=== PATIENT | male | born 1960 | race Caucasian/White ===

== ENCOUNTER 2017-10-22 19:18 | Emergency (ER) | payer BC ==
[~2017-10-22] VITALS: Ht 172.7 cm; Wt 104.3 kg
--- NOTE | 2017-10-22 19:23 | ER Report ---
History and Physical Time Seen By MD: 19:22 HPI/ROS CHIEF COMPLAINT: Shortness of breath, chest pain, right shoulder pain HISTORY OF PRESENT ILLNESS: 56-year-old male visiting from [facility] and [facility]. Patient began to feel bad this afternoon. He was taking out the snow pants when he states he had a syncopal episode and collapsed on the porch. He denies injury. Patient states he has history of altitude sickness. He states several months ago when he was in the [facility]. He had difficulty breathing with exertion. Denies no chest pain with exertion. He denies chest pain today. On arrival he has audible wheezing. Complaining of chest tightness and right shoulder pain. Patient admits to methamphetamine use today. REVIEW OF SYSTEMS: Respiratory: As above Cardiovascular: As above Gastrointestinal: No vomiting, no abdominal pain. Musculoskeletal: No back pain. Allergies: Coded Allergies: No Known Drug Allergies (Unverified , 10/22/17) Reviewed Nurses Notes: Yes Old Medical Records Reviewed: Yes Constitutional Vital Sign - Last 24 Hours 10/22/17 10/22/17 10/22/17 10/22/17 19:18 19:20 19:22 19:30 Pulse ??? 93 Resp 20 B/P (MAP) 149/92 (111) 149/92 122/77 (92) Pulse Ox 99 O2 Delivery Room Air 10/22/17 10/22/17 10/22/17 10/22/17 19:33 19:41 19:41 19:42 Pulse 98 Resp 19 20 Pulse Ox 91 98 O2 Delivery Room Air O2 Flow Rate 2.0 10/22/17 10/22/17 10/22/17 10/22/17 19:45 19:48 19:55 20:00 Pulse 87 Resp 10 B/P (MAP) 103/82 (89) 153/100 (117) 151/85 (107) Pulse Ox 98 10/22/17 10/22/17 10/22/17 10/22/17 20:03 20:15 20:30 20:35 Pulse 89 87 88 Resp 18 21 9 B/P (MAP) 155/99 (117) 139/93 (108) 134/82 (99) Pulse Ox 98 98 97 1/27/18 1/27/18 1/27/18 1/27/18 20:45 20:50 21:05 21:15 Pulse 95 98 Resp 15 15 B/P (MAP) 120/97 (105) 118/89 (99) Pulse Ox 92 90 10/22/17 10/22/17 10/22/17 10/22/17 21:20 21:30 21:35 21:45 Pulse 101 96 Resp 10 19 B/P (MAP) 109/81 (90) 116/73 (87) Pulse Ox 91 95 10/22/17 21:50 Pulse 99 Resp 14 Intake and Output 10/22/17 10/22/17 10/23/17 15:00 23:00 07:00 Intake Total 1000 ml Balance 1000 ml Physical Exam General Appearance: The patient is alert, has no immediate need for airway protection and no current signs of toxicity. Moderate distress, vital signs stable, afebrile, pulse ox normal HEENT: Pupils equal and round no injection. Oropharynx without redness or exudate Respiratory: Chest is non tender, lungs are clear to auscultation. No chest wall tenderness Cardiac: regular rate and rhythm, no murmur Gastrointestinal: Abdomen is soft and non tender, no masses, bowel sounds normal. Musculoskeletal: Neck: Neck is supple and non tender. Extremities have full range of motion and are non tender. No edema, no calf tenderness, there is pain in the right shoulder on passive movement Skin: No rashes or lesions. DIFFERENTIAL DIAGNOSIS: After history and physical exam differential diagnosis was considered for chest pain including but not limited to myocardial ischemia, pericarditis pulmonary embolus, chest wall pain, pleural inflammation and pulmonary infectious causes. Medical Decision Making Data Points Result Diagram: 10/22/17193110/22/171931 Laboratory Hematology Test 10/22/17 19:32 Red Blood Count 5.19 M/uL (4.00-5.60) Mean Corpuscular Volume 83.5 fL (80.0-96.0) Mean Corpuscular Hemoglobin 28.8 pg (26.0-33.0) Mean Corpuscular Hemoglobin Concent 34.5 g/dL (32.0-36.0) Red Cell Distribution Width 13.9 % (11.5-14.5) Mean Platelet Volume 7.2 fL (7.2-11.1) Neutrophils (%) (Auto) 76.9 % (39.4-72.5) Lymphocytes (%) (Auto) 15.2 % (17.6-49.6) Monocytes (%) (Auto) 6.3 % (4.1-12.4) Eosinophils (%) (Auto) 0.9 % (0.4-6.7) Basophils (%) (Auto) 0.7 % (0.3-1.4) Nucleated RBC Relative Count (auto) 0.0 /100WBC Neutrophils # (Auto) 7.8 K/uL (2.0-7.4) Lymphocytes # (Auto) 1.5 K/uL (1.3-3.6) Monocytes # (Auto) 0.6 K/uL (0.3-1.0) Eosinophils # (Auto) 0.1 K/uL (0.0-0.5) Basophils # (Auto) 0.1 K/uL (0.0-0.1) Nucleated RBC Absolute Count (auto) 0.00 K/uL Prothrombin Time 13.0 seconds (12.0-14.4) Prothromb Time International Ratio 0.98 Activated Partial Thromboplast Time 27 seconds (23-35) D-Dimer Quantitative (PE/DVT) < 0.27 ug/ml (0-0.50) Sodium Level 138 mmol/L (137-145) Potassium Level 3.9 mmol/L (3.5-5.0) Chloride Level 103 mmol/L (98-107) Carbon Dioxide Level 23 mmol/L (22-30) Blood Urea Nitrogen 16 mg/dl (9-21) Creatinine 1.20 mg/dl (0.66-1.25) Glomerular Filtration Rate Calc > 60.0 Random Glucose 85 mg/dl (75-110) Lactate 2.1 mmol/L (0.7-2.1) Calcium Level 9.1 mg/dl (8.4-10.2) Total Bilirubin 0.9 mg/dl (0.2-1.3) Aspartate Amino Transf (AST/SGOT) 48 U/L (0-35) Alanine Aminotransferase (ALT/SGPT) 81 U/L (0-56) Alkaline Phosphatase 105 U/L (0-126) Troponin I 0.115 ng/ml B-Type Natriuretic Peptide 255 pg/ml (0-100) Total Protein 7.0 gm/dl (6.3-8.2) Albumin 3.9 g/dl (3.5-5.0) Chemistry Test 10/22/17 19:32 White Blood Count 10.2 k/uL (4.5-11.0) Red Blood Count 5.19 M/uL (4.00-5.60) Hemoglobin 15.0 g/dL (14.0-18.0) Hematocrit 43.4 % (42.0-52.0) Mean Corpuscular Volume 83.5 fL (80.0-96.0) Mean Corpuscular Hemoglobin 28.8 pg (26.0-33.0) Mean Corpuscular Hemoglobin Concent 34.5 g/dL (32.0-36.0) Red Cell Distribution Width 13.9 % (11.5-14.5) Platelet Count 267 K/uL (150-450) Mean Platelet Volume 7.2 fL (7.2-11.1) Neutrophils (%) (Auto) 76.9 % (39.4-72.5) Lymphocytes (%) (Auto) 15.2 % (17.6-49.6) Monocytes (%) (Auto) 6.3 % (4.1-12.4) Eosinophils (%) (Auto) 0.9 % (0.4-6.7) Basophils (%) (Auto) 0.7 % (0.3-1.4) Nucleated RBC Relative Count (auto) 0.0 /100WBC Neutrophils # (Auto) 7.8 K/uL (2.0-7.4) Lymphocytes # (Auto) 1.5 K/uL (1.3-3.6) Monocytes # (Auto) 0.6 K/uL (0.3-1.0) Eosinophils # (Auto) 0.1 K/uL (0.0-0.5) Basophils # (Auto) 0.1 K/uL (0.0-0.1) Nucleated RBC Absolute Count (auto) 0.00 K/uL Prothrombin Time 13.0 seconds (12.0-14.4) Prothromb Time International Ratio 0.98 Activated Partial Thromboplast Time 27 seconds (23-35) D-Dimer Quantitative (PE/DVT) < 0.27 ug/ml (0-0.50) Glomerular Filtration Rate Calc > 60.0 Lactate 2.1 mmol/L (0.7-2.1) Calcium Level 9.1 mg/dl (8.4-10.2) Total Bilirubin 0.9 mg/dl (0.2-1.3) Aspartate Amino Transf (AST/SGOT) 48 U/L (0-35) Alanine Aminotransferase (ALT/SGPT) 81 U/L (0-56) Alkaline Phosphatase 105 U/L (0-126) Troponin I 0.115 ng/ml B-Type Natriuretic Peptide 255 pg/ml (0-100) Total Protein 7.0 gm/dl (6.3-8.2) Albumin 3.9 g/dl (3.5-5.0) Coagulation Test 10/22/17 19:32 Prothrombin Time 13.0 seconds Prothromb Time International Ratio 0.98 Activated Partial Thromboplast Time 27 seconds D-Dimer Quantitative (PE/DVT) < 0.27 ug/ml EKG/Imaging EKG Interpretation 12 lead EK Rhythm: normal sinus rhythm [place]: Rightward axis QRS: normal ST segments: normal, nonspecific biphasic T waves diffusely, no old EKGs for comparison Imaging X-ray:Single view portable chest x-ray was obtained. I viewed the images myself on the PACS system. My interpretation of the images is: No infiltrate, no effusion, normal mediastinum . The radiologist interpretation had no clinically significant variation from this interpretation. ED Course/Re-evaluation Clinical Indication for ER IV: Hydration, IV Access ED Course Patient was admitted to an examination room. H&P was done. The differential diagnoses was considered. On clinical examination. Patient's in significant distress, but he has normal vital signs. He is complaining of chest pain. His initial EKG shows no gross evidence of ischemia, except diffuse T-wave flattening and some biphasic T waves. Patient's treated with IV fentanyl, Toradol, Zofran and aspirin 324 mg. Patient receives a DuoNeb for audible wheezing. He has wheezing on auscultation of the chest. Patient's portal chest x-ray shows no abnormalities. There is no mediastinal widening. Patient' s diagnostic studies return. Elevated troponin 0.115, suggestive of acute coronary syndrome. Patient admitted to methamphetamine abuse. He's also altitude from his home state of [place]. Patient likely has cardiac ischemia induced by methamphetamine use. Patient's treated with Nitropaste and Dilaudid since he has no improvement with the Toradol and fentanyl. Cardiology's consult at [facility] who advise Lovenox and Lipitor 80 mg by mouth. They advise transfer by ambulance to their facility for further monitoring and treatment. Patient on reevaluation is much improved after Dilaudid and Nitropaste. His chest pain is significantly reduced. He is resting comfortably. 10/22/2017 8:12:22 pm case discussed with traffic police officer Dr Lake and hospitalist Dr Hu at [facility] Decision to Disposition Date: Oct 22, 2017 Decision to Disposition Time: 20:04 Critical Care Time I spent a total of 60 minutes of critical care time in obtaining history, performing a physical exam, bedside monitoring of interventions, collecting and interpreting tests and discussion with consultants but not including time spent performing procedures. Depart Departure Latest Vital Signs Vital Signs Date Time Temp Pulse Resp B/P (MAP) Pulse Ox O2 Delivery O2 Flow Rate FiO2 10/22/17 21:50 99 14 10/22/17 21:45 116/73 (87) 10/22/17 21:35 95 10/22/17 19:42 2.0 10/22/17 19:41 Room Air Impression: Primary Impression: Chest pain Additional Impressions: Methamphetamine abuse Elevated troponin Condition: Improved Disposition: XFER TO ACUTE [facility]ARE [facility] Problem Qualifiers Primary Impression: Chest pain Chest pain type: chest pain due to myocardial ischemia Ischemic chest pain type: unspecified angina pectoris type Qualified Codes: I20.9 - Angina pectoris, unspecified JANETH LARA DO Oct 22, 2017 19:23
[2017-10-22] MEDS ORDERED: NS(*) 0.9% 1000 ML BAG 1,000 ML IV ONE (19:27)
[2017-10-22] MEDS ORDERED: ALBUTEROL/IPRATROPIUM 3 ML NEB NEB ONE (19:30)
[2017-10-22] MEDS ORDERED: ASPIRIN 81 MG CHEW PO ONE (19:30)
[2017-10-22] MEDS ORDERED: fentaNYL CITR 100 MCG/2 ML AMP IVP ONE (19:30)
[2017-10-22] MEDS ORDERED: KETOROLAC 30 MG/ML VIAL IVP ONE (19:30)
[2017-10-22] MEDS ORDERED: ONDANSETRON 4 MG/2 ML VIAL IVP ONE (19:30)
[2017-10-22 19:47] LABS: PLATELET COUNT, AUTOMATED 267 K/uL (150-450)
[2017-10-22] MEDS ORDERED: HYDROmorphone(ER ONLY) 1 MG/ML IVP ONE (20:00)
[2017-10-22] MEDS ORDERED: NITROGLYCERIN OINT 1 GM PKT TP ONE (20:00)
--- NOTE | 2017-10-22 20:06 | RADIOLOGY IMAGING REPORT ---
FACILITY: [facility] PATIENT NAME: Nessa Casanova : 1960 MR: [id number] V: [id number] EXAM DATE: ORDERING PHYSICIAN: JANETH LARA TECHNOLOGIST: Location: [facility] Patient: Nessa Casanova : 1960 Visit/Account:[id number] Date of Sevice: 10/22/2017 Examination: CHEST SINGLE AP Comparison: None. History: Chest Pain Findings: No consolidation, nodule, or peribronchial inflammation. No pneumothorax, edema, or effusio n. Cardiac and hilar contour size is within normal limits. Osseous structures are intact. IMPRESSION: No evidence of acute cardiopulmonary disease. Report Dictated By: Omer Mcknight MD at 10/22/2017 8:01 PM Report E-Signed By: Omer Mcknight MD at 10/22/2017 8:02 PM [id number]
[2017-10-22] MEDS ORDERED: ATORVASTATIN 40 MG TAB PO ONE (20:15)
[2017-10-22] MEDS ORDERED: ENOXAPARIN 100 MG/ML SYR SC ONE (20:15)
[2017-10-22 20:27] LABS: INR 0.98
--- NOTE | 2017-10-22 21:13 | EKG ---
FACILITY: [facility] PATIENT NAME: VINNIE FAYE : [id number] MR: [id number] V: [id number] EXAM DATE: ORDERING PHYSICIAN: JANETH LARA TECHNOLOGIST: SAUD Test Reason : CHEST PAIN Blood Pressure : / mmHG Vent. Rate : 097 BPM Atrial Rate : 097 BPM P-R Int : 152 ms QRS Dur : 084 ms QT Int : 372 ms P-R-T Axes : 071 098 065 degrees QTc Int : 472 ms Normal sinus rhythm Rightward axis Prolonged QT Abnormal ECG No previous ECGs available Confirmed by SHILA NEGRO ([id number]) on 10/23/2017 8:57:26 AM Referred By: Confirmed By:SHILA NEGRO
[2017-10-22 21:45] VITALS: BP 116/73
== END 2017-10-22 21:45 | disposition short-term general hospital (02) ==
LOC: ER 19:32
DX: I20.9 Angina pectoris, unspecified (principal); R07.89 Other chest pain; F15.90 Other stimulant use, unspecified, uncomplicated; R79.89 Other specified abnormal findings of blood chemistry
CPT/HCPCS: 71045; 83605; 83880; 84484; 85025; 85379; 85610; 85730; 93005; 94640; 96361; 96372; 96374; 96375; 99291; J1170; J1650; J1885; J2405; J3010; J7030; J7620; 82040; 82247; 82310; 82374; 82435; 82565; 82947; 84075; 84132; 84155; 84295; 84450; 84460; 84520; 99285

== ENCOUNTER → 2017-10-22 | Outpatient (CLI) | payer BC | LOC: AMB 22:00 | PROVIDERS: ATTEND Nurse Practitioner | DX: R79.89 Other specified abnormal findings of blood chemistry (principal); F15.90 Other stimulant use, unspecified, uncomplicated | CPT/HCPCS: A0425; A0428 ==